=== PATIENT | female | born 2005 | race Caucasian/White ===

== ENCOUNTER 2023-02-01 18:20 | Emergency (ER) | payer OTHER ==
[~2023-02-01] VITALS: Ht 165.1 cm; Wt 90.3 kg
--- OUTSIDE RECORDS SUMMARY | 2023-02-01 18:24 | XMS ---
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 Luciana has no Care Guidelines for this patient. Mireya VISIT COUNT (12 MO.) 1 ROSALBA Salcedo TOTAL 1 NOTE: Visits indicate total known visits. ED/C VISIT TRACKING (12 MO.) 02/01/2023 18:22 [facility]AL[facility] Galindo [place] TYPE: Emergency COMPLAINT: - HEART ISSUES INPATIENT VISIT TRACKING (12 MO.) No inpatient visits to display in this time frame [email or web address]
[2023-02-01] MEDS ORDERED: FLUOXETINE HCL20 MG PO (18:49)
[2023-02-01] MEDS ORDERED: CYCLOBENZAPRINE10 MG PO (20:49)
[2023-02-01 21:15] VITALS: BP 132/84
--- NOTE | 2023-02-03 21:33 | EKG ---
[facility] [address] [facility] [place] [address] Signed Normal sinus rhythm with sinus arrhythmia Normal ECG No previous ECGs available Confirmed by Cristóbal Arambula MD () on 02/03/2023 9:33:24 PM Electronically Signed By: CRISTÓBAL ARAMBULA MD 02/03/232132 PATIENT NAME: IFTIKHAR CORDERO Electrocardiogram DATE OF : [birth year] PHYSICIAN: CRISTÓBAL ARAMBULA MD REPORT #: [id number] REPORT IS CONFIDENTIAL AND NOT TO BE RELEASED WITHOUT AUTHORIZATION
== END 2023-02-01 21:16 | disposition home or self-care (01) ==
LOC: ED 18:20
DX: R07.89 Other chest pain (principal); Z79.899 Other long term (current) drug therapy
CPT/HCPCS: 36415; 71045; 80053; 84484; 85025; 93005; 93010; 99285-25